=== PATIENT | male | born 2000 | race African-American/Black ===

== ENCOUNTER 2023-11-07 15:44 | Emergency (ER) | payer OTHER ==
[~2023-11-07] VITALS: Ht 177.8 cm; Wt 105.0 kg
[2023-11-07 15:48] VITALS: BP 154/97; PULSE 118; RESP 16; TEMP 98.6; O2SAT 98
== END 2023-11-07 16:47 ==
LOC: ER 15:44
DX: Z00.00 Encounter for general adult medical examination without abnormal findings (principal)
CPT/HCPCS: 99283